=== PATIENT | male | born 1965 | race Caucasian/White ===

== ENCOUNTER 2016-04-04 19:29 | Emergency (ER) | payer OTHER ==
[2016-04-04] MEDS ORDERED: PROPARACAINE 0.5% 15 ML OPHT DROP OP ONE (19:31)
--- NOTE | 2016-04-04 19:31 | UCPHY ---
H & P Patient Type: New HPI/ROS: HPI CHIEF COMPLAINT: "I think I have my contact stuck, left eye" HISTORY OF PRESENT ILLNESS: This patient very pleasant 51-year-old male denies any significant medical or surgical history presents to the urgent care stating he thinks there is a contact still stuck in his left eye. Patient states he has a foreign body sensation feeling. He has been rubbing his eye on the medial aspect of his right eye his conjunctiva at the border of his iris is injected with a capillary blood vessel injury. He feels a foreign body sensation up the medial corner upper corner of his eye. Denies drainage, denies significant eye pain, denies double vision. Past Medical History: No significant medical history Past Surgical History: no significant surgical Social History: Denies daily use drugs alcohol tobacco products Family History: Noncontributory ROS REVIEW OF SYSTEMS: A comprehensive 10 point review of systems is otherwise negative aside from elements mentioned in the history of present illness. Exam Constitutional triage nursing summary reviewed, vital signs reviewed, awake/ alert. Eyes normal conjunctivae and sclera, EOMI, PERRLA. Right Eye Normal. Left Eye: pupil equal round react to light extra movements intact, no proptosis, medial aspect of the conjunctiva at the iris border is a conjunctival injection significant for capillary damage, on fluorescein uptake there is no uptake seen specifically there is no evidence of corneal abrasion. Eyelids were both everted and a Q-tip is ran in the upper eyelid I do not appreciate a foreign body specifically I do not visualize any contact I do not visualize a stuck contact to the anterior high or a contact up underneath the eyelid. HENT normal inspection, atraumatic, moist mucus membranes, no epistaxis, neck supple/ no meningismus, no raccoon eyes. Respiratory clear to auscultation bilaterally, normal breath sounds, no respiratory distress, no wheezing. Cardiovascular rate normal, regular rhythm, no murmur, no edema, distal pulses normal. Gastrointestinal soft, non-tender, no rebound, no guarding, normal bowel sounds, no distension, no pulsatile mass. Genitourinary no CVA tenderness. Musculoskeletal no midline vertebral tenderness, full range of motion, no calf swelling, no tenderness of extremities, no meningismus, good pulses, neurovascularly intact. Skin pink, warm, & dry, no rash, skin atraumatic. Neurologic awake, alert and oriented x 3, AAOx3, moves all 4 extremities equally, motor intact, sensory intact, CN II-XII intact, normal cerebellar, normal vision, normal speech. Psychiatric normal mood/affect. Heme/Lymph/Immune no lymphadenopathy. Differential Diagnosis: Includes but is not limited to in a particular order, corneal abrasion, conjunctival abrasion, conjunctival injection, retained foreign body, stuck contact lens Medical Decision Making: Of note on exam there is no visible foreign body seen on eye exam specifically I do not appreciate a stuck contact or contact underneath the eyelid of the left eye. There is no corneal abrasion present. There is a conjunctival injection. I explained I will place this patient on antibiotic eyedrops he will need ophthalmology follow-up tomorrow for formal eye exam. And recheck to make sure the conjunctival injury is not getting worse. Patient understands call there to morning for follow-up appointment. Eyedrops prescription for tonight. Return to the urgent care or emergency room if there is any worsening symptoms questions concerns do not rub your eye 2002: spoke with Dr. Ace Ophthalmology director of acquisitions who will be glad to see this patient tomorrow morning call for appointment at 8:30 a.m.. Source: Patient - Family History Significant Family History: No pertinent family hx Constitutional: Initial Vital Signs Temperature (C) 36.8 C 04/04/16 19:30 Heart Rate 52 L 04/04/16 19:30 Respiratory Rate 16 04/04/16 19:30 Blood Pressure 140/68 H 04/04/16 19:30 O2 Sat (%) 96 04/04/16 19:30 O2 Delivery Mode Room Air Allergies/Adverse Reactions: No Known Allergies Allergy (Verified 04/04/16 19:30) Home Medications: Medication Instructions Recorded Polymyxin B Sulfate/Tmp [Polytrim 1 drops LEFTEYE BID #1 bottle 04/04/16 Opht Drops (*)] Departure - Departure Disposition: Home, Routine, Self-Care Clinical Impression: Conjunctival injection Qualifiers: Laterality: left Qualified Code(s): H11.432 - Conjunctival hyperemia, left eye Condition: Good Instructions: Conjunctivitis (ED) Additional Instructions: 1. Do not Rub your eye. 2. Take antibiotic as prescribed. 3. please follow up with Ophthalmology tomorrow. Please call their for an appointment in the morning. Referrals: YURI,ALENA D [Primary Care Provider] - As per Instructions Joey Ace MD [Medical Doctor] - As per Instructions Prescriptions: Polymyxin B Sulfate/Tmp [Polytrim Opht Drops (*)] 1 drops LEFTEYE BID #1 bottle - PQRS PQRS Measurement: n/a
[2016-04-04 19:34] VITALS: BP 140/68; PULSE 52; RESP 16; TEMP 98.2; O2SAT 96
[2016-04-04] MEDS ORDERED: FLUORESCEIN SODIUM 1 MG STRIP OP ONE (19:39)
== END 2016-04-04 20:09 | disposition home or self-care (01) ==
LOC: CED 19:29
DX: H11.432 Conjunctival hyperemia, left eye (principal)
CPT/HCPCS: 99204-PO; G0463-PO